=== PATIENT | female | born 1975 | race Caucasian/White ===

== ENCOUNTER 2022-04-10 08:28 | Outpatient (CLI) | payer OTHER, SELFPAY ==
[2022-04-10 14:41] LABS: Cholesterol* 187 mg/dL (90-199); HDL Cholesterol* 76 mg/dL (>=50); LDL Cholesterol Calculated 83 mg/dL (<100); Triglycerides* 141 mg/dL (40-149)
== END 2022-04-10 08:29 | disposition home or self-care (01) ==
LOC: LONREF 08:29
PROVIDERS: PCP Nurse Practitioner Family; Visit Provider Family Medicine
DX: Z00.00 Encounter for general adult medical examination without abnormal findings (principal); E78.5 Hyperlipidemia, unspecified
CPT/HCPCS: 80061